=== PATIENT | male | born 1960 | race Caucasian/White ===

== ENCOUNTER 2019-06-22 20:22 | Emergency (ER) | payer OTHER ==
[~2019-06-22] VITALS: Ht 180.3 cm; Wt 114.3 kg
== END 2019-06-22 22:26 | disposition home or self-care (01) ==
LOC: ER 20:22
DX: I10 Essential (primary) hypertension (principal); F06.4 Anxiety disorder due to known physiological condition

== ENCOUNTER 2023-04-04 13:25 | Emergency (ER) | payer OTHER ==
[~2023-04-04] VITALS: Ht 177.8 cm; Wt 108.9 kg
[2023-04-04] MEDS ORDERED: FINASTERIDE5 MG (13:33)
[2023-04-04] MEDS ORDERED: TAMSULOSIN HCL0.4 MG PO (13:33)
== END 2023-04-04 19:21 | disposition home or self-care (01) ==
LOC: ER 13:25
DX: B34.9 Viral infection, unspecified (principal); J32.9 Chronic sinusitis, unspecified; R53.81 Other malaise; Z20.822 Contact with and (suspected) exposure to COVID-19